=== PATIENT | male | born 1960 | race Caucasian/White ===

== ENCOUNTER → 2025-10-31 | Outpatient (REF) | payer OTHER ==
[2025-10-31 20:38] LABS: CREATININE, URINE 128.1 MG/DL; MALB URINE SIEMENS < 3.0 MG/L
== END ==
LOC: M LAB REF 16:51
PROVIDERS: ATTEND Nurse Practitioner Family
DX: I12.9 Hypertensive chronic kidney disease with stage 1 through stage 4 chronic kidney disease, or unspecified chronic kidney disease (principal); E11.22 Type 2 diabetes mellitus with diabetic chronic kidney disease